=== PATIENT | male | born 1990 | race Caucasian/White ===

== ENCOUNTER 2018-08-01 12:34 | Emergency (ER) | payer BC, SELFPAY ==
[2018-08-01 12:34] VITALS: BP 117/73; PULSE 74; RESP 16; TEMP 36.9; O2SAT 98; BMI 21.1
[2018-08-01 13:34] LABS: Bacteria 0 SEEN /hpf (None Seen); Mucous, Urine 0 SEEN /hpf (<or=2+); Squamous Epithelial Cells - UA 0 SEEN /hpf (0-5); White Blood Cells 0 SEEN /hpf (0-5)
[2018-08-01 13:37] LABS: Color, Urine Yellow (Yellow); Glucose, Dipstick Normal (Normal); Ketone-Dipstick Negative (Negative); Leukocyte Esterase-Dipstick Negative /ul (Negative); Nitrite-Dipstick Negative (Negative); Occult Blood-Urine 250 /ul (Negative); Protein-Dipstick Negative (Negative); Specific Gravity, Urine 1.015 (1.002-1.030); Urine Bilirubin Dipstick Negative (Negative); Urine Clarity Clear (Clear); Urine Urobilinogen Normal (Normal)
--- NOTE | 2018-08-01 13:39 | ED.VISSUMM ---
- ER Visit Summary Date of Service: 08/01/18 Chief Complaint: Flank pain History of Present Illness: The patient is a 28 M who presents the emergency department the right flank pain. Patient states that he woke today around 1000 hours. The patient describes it as a constant pain. It is may be worse with movement. It is not radiating. Notes mild nausea but no vomiting. No leg symptoms. No known trauma. This week at work he put in a 85-hour workweek. 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 States he had a little bit of discomfort in this area yesterday but not like today. Physical Examination: Afebrile vital signs are stable Gen: Well-nourished well-developed Head: Normocephalic atraumatic Eyes: Perrl EOMI ENT: TMs clear no rhinorrhea moist mucous membranes Neck: Supple no lymphadenopathy no JVD nontender CVS: Regular rate rhythm no murmurs normal S1-S2 Respiratory: No distress clear to auscultation bilaterally chest nontender Abdomen: Soft nontender nondistended normal bowel sounds no masses Back: Mild tenderness but not exactly reproducing his pain is not reproducible with movement Extremity: Nontender no edema Skin: Normal color no rash Neuro: alert orientated ?3 CN II-XII intact normal strength sensation reflexes gait cerebellar Psych: Normal affect normal mood Test Results: Urinalysis demonstrated greater than [address] abdomen pelvis without contrast demonstrated 2 mm mid ureteral stone with mild hydroureter. Emergency Department Course and Treatment: Patient received a dose of Toradol. Has been resting comfortably. Patient be discharged home with a prescription for [place], Toradol, and Zofran. Return instructions understood. He will follow-up with urology Dr. perez [email or web address] application developer today. Impression: 1. Right 2 mm ureterolithiasis This note was generated with imeem dictation software. It may contain incorrect words, spelling, and punctuation that were not noted in review of the chart prior to signing ED Disposition - Plan for ED Patient: Disposition: Home or Assisted Living Instructions: ED Stone Renal W Colic Prescriptions: Hydrocodone Bitart/Apap 5-325 [[place] 5MG-325MG] 1 tab PO Q6H PRN PRN 3 Days #12 tab PRN Reason: Pain Ondansetron [Zofran Odt] 4 mg PO Q6H PRN PRN #10 tab PRN Reason: Nausea Ketorolac [Toradol] 10 mg PO Q8H PRN #15 tab PRN Reason: Pain Referrals: Addy Mehta MD [STAFF PHYSICIAN] -
--- NOTE | 2018-08-01 13:41 | CT_ITS ---
STUDY: CT ABDOMEN AND PELVIS WITHOUT CONTRAST REASON FOR EXAM: Male, 28 years old. Right flank pain that started today RADIATION DOSAGE (If Supplied By Facility): CTDIvol = ( 6.21 ) mGy, DLP = ( 320.93 ) mGycm TECHNIQUE: Transaxial images were obtained from the dome of the diaphragm to the symphysis pubis without oral contrast, and without intravenous contrast. Sagittal and coronal images were reconstructed. Individualized dose optimization techniques were used for this CT. COMPARISON: None. FINDINGS: The visualized lung bases are unremarkable. The visualized portions of the heart are within normal limits. Normal liver. Normal gallbladder and extrahepatic biliary system. Normal spleen. Normal pancreas. Normal bilateral adrenal glands. Mild right hydronephrosis and hydroureter extending to a 2 mm calcification in the right mid ureter at L4 level. Nonobstructing 2 mm calculus in inferior right kidney as seen on image 67. 2 mm nonobstructing calculus of the left kidney is evident on image 55. Normal visualized stomach. Normal small intestine. Normal colon. The appendix is visualized and appears normal. Normal abdominal aorta. Normal inferior vena cava. Normal retroperitoneum. Normal urinary bladder. Normal abdominal wall. Normal osseous structures. CT/Abdomen/Pelvis without Cont IMPRESSION: 2 mm right mid ureter calculus with mild hydronephrosis. Bilateral nephrolithiasis. Electronically Signed: Chandler Parkinson MD at 14:46 EDT , Service support ,
[2018-08-01 13:42] LABS: Red Blood Cells-Urine > 100 SEEN /hpf (0-5)
[2018-08-01 14:01] LABS: Anion Gap 5 (5-15); BUN 14 mg/dL (7-18); BUN/Creat Ratio 12.6 RATIO (10-20); Calcium,Total 9.1 mg/dL (8.5-10.1); Chloride 105 mmol/L (98-107); Creatinine, Serum 1.11 mg/dL (0.70-1.30); EST Glomerular Filtration Rate 83 mL/min (>60); Est Glom Filt Rate - Afr Amer 101 mL/min (>60); Estimated Creatinine Clearance 98.06 ml/min; Glucose 100 mg/dL (74-106); Potassium 4.1 mmol/L (3.5-5.1); Sodium Level 138 mmol/L (136-145)
[2018-08-01] MEDS: Ketorolac 30 MG/ML Syringe IV (14:05)
[2018-08-01 15:21] VITALS: BP 129/77; PULSE 55; RESP 16; TEMP 36.6; O2SAT 100
== END 2018-08-01 15:23 | disposition home or self-care (01) ==
PROVIDERS: Emergency Provider Emergency Medicine
DX: N20.1 Calculus of ureter (principal)
CPT/HCPCS: 74176; 80048; 81001; 96374; 99283

== ENCOUNTER 2025-04-24 00:08 | Emergency (ER) | payer BC, SELFPAY ==
[2025-04-24 00:10] VITALS: BP 140/92; PULSE 127; RESP 10; TEMP 37; O2SAT 98; BMI 26.9
--- NOTE | 2025-04-24 00:20 | EKG12_ITS ---
Test Reason : DYSRHYTHMIA Blood Pressure : */* mmHG Vent. Rate : 119 BPM Atrial Rate : 119 BPM P-R Int : 200 ms QRS Dur : 84 ms QT Int : 290 ms P-R-T Axes : 57 97 61 degrees QTcB Int : 407 ms Sinus tachycardia Possible Left atrial enlargement Rightward axis Nonspecific ST abnormality Abnormal ECG Confirmed by George Swan ([id number]), videotape editor BRIEN ALTAMIRANO ([id number]) on 04/25/2025 10:01:07 AM Referred By: JAMES Confirmed By: George Swan
--- NOTE | 2025-04-24 00:20 | RAD_ITS ---
PROCEDURE: CHEST 1 VIEW (PORTABLE) 04/24/2025 REASON FOR EXAM: CHEST PAIN TECHNIQUE: Frontal view of the chest. FINDINGS: The lungs are clear. The cardiomediastinal silhouette appears unremarkable. No acute osseous abnormality. RAD/Chest 1 View (Portable) IMPRESSION: As above. Reading Location: [id number]
[2025-04-24 00:39] LABS: Hematocrit 43.3 % (40-54); Hemoglobin 14.8 g/dL (13.0-16.5); Immature Granulocytes Count 0.040 X10^3/uL (0.0-0.0); Mean Corp Hgb Conc 34.2 g/dL (32-36); Mean Corpuscular Volume 88.2 fL (80-94); Mean Platelet Vol. 8.9 fl (6.2-12.0); NRBC Flagged by Analyzer 0 % (0-5); Platelet Count 330 K/mm3 (150-450); RBC Distribution Width CV 12.5 % (11.6-14.6); RBC Distribution Width SD 40.1 fl (35.1-43.9); Red Blood Count 4.91 M/mm3 (4.6-6.2); White Blood Count 13.0 K/mm3 (4.4-11.0)
[2025-04-24 00:45] LABS: D-Dimer Quantitative (DVT/PE) 0.44 FEU/ug/m (0.27-0.49)
[2025-04-24 00:46] LABS: Anion Gap 14 (7-18); BUN 11 mg/dL (4-19); BUN/Creat Ratio 9.4 RATIO (10-20); Calcium,Total 9.6 mg/dL (7.6-11.0); Carbon Dioxide 23.2 mmol/L (20.0-29.0); Chloride 101 mmol/L (96-106); Estimated Creatinine Clearance 99.19 ml/min (50-250); Glucose 116 mg/dL (70-99); Potassium 4.0 mmol/L (3.5-5.1); Troponin T High Sensitivity < 6 ng/L (<=22)
[2025-04-24] MEDS: 0.9% Normal Saline (1000mL) 1,000 ML 999 ML IV (00:51)
[2025-04-24 01:00] VITALS: BP 132/84; PULSE 111; RESP 19; O2SAT 96
[2025-04-24 01:14] LABS: Magnesium 1.8 mg/dL (1.5-2.2)
--- NOTE | 2025-04-24 01:44 | EDS_ITS ---
HPI History of Present Illness Chief Complaint: Palpitations Informant: patient and family Narrative Narrative: Patient is a 35-year-old male with no reported significant past medical history. He states this evening he was resting at home when he felt his heart began to race. He states his watch alerted him that his heart rate was fast and approximately around 140. He states there is no known history of cardiac dysrhythmia in himself or family members. 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 He denies any recent sick symptoms or bouts of nausea and vomiting which could have led to dehydration. He states that this type of event has happened in the past but will typically resolve within a few minutes if he lays down and does deep breathing. He tried that this evening without any symptom improvement and therefore based on the persistent nature of symptoms presents for evaluation Patient also denies any history of excessive stimulant use or illicit drug use PFSH PFS Medical History no medical history no medical history Home Medications Medication Instructions Recorded Last Taken Type NK 04/24/25 Unknown History Allergy/AdvReac Type Severity Reaction Status Date / Time No Known Allergies Allergy Verified 04/24/25 00:14 Surgical History (Updated 04/24/25 @ 00:13 by Zhane Vazquez) H/O knee surgery History of ankle surgery Social History Smoking Status: Never smoker ROS ROS ED Constitutional Constitutional ED: Denies chills or fever(s) Eyes Eyes: Denies change in vision ENT ENT ED: Denies sore throat Cardiovascular Cardiovascular: Reports palpitations and racing heartbeat; Denies chest pain Respiratory/Chest Respiratory/Chest: Denies cough or dyspnea Gastrointestinal Gastrointestinal: Denies abdominal pain, diarrhea, nausea or vomiting Musculoskeletal Musculoskeletal: Denies back pain or myalgias Integumentary Denies rash Neurologic Neurologic: Denies headache(s) Psychiatric Psychiatric: Denies anxiety Hematologic/Lymphatic Hematologic/Lymphatic: Denies easy bleeding or easy bruising EXAM Physical Exam Const Vital Signs: 04/24/25 00:10 04/24/25 00:13 04/24/25 00:24 Temperature 98.6 F Temperature Source Oral Pulse Rate 127 H Respiratory Rate 10 L Respiratory Effort Normal Non-Labored Blood Pressure 140/92 H Blood Pressure Mean 108 Pulse Ox 98 Oxygen Delivery Method Room Air Room Air 04/24/25 01:00 04/24/25 01:59 Temperature 98.6 F Temperature Source Pulse Rate 111 H 109 H Respiratory Rate 19 H 17 Respiratory Effort Blood Pressure 132/84 H 139/90 H Blood Pressure Mean 97 106 Pulse Ox 96 96 Oxygen Delivery Method Room Air Positive well nourished and well developed General Appearance ED: well developed; Negative for pallor HEENT HEENT Narrative: Normocephalic atraumatic Eyes PERRL and EOMs intact bilaterally General Eye ED: Negative for scleral icterus Neck supple and no JVD Chest Wall palpation of chest normal Resp normal respiratory effort and clear to auscultation bilaterally Cardio regular rhythm Rate: tachycardic and other Other Details: Tachycardic rate with regular rhythm No murmurs rubs or gallop Radial and carotid pulses are equal and symmetric GI normal to inspection, nondistended, normoactive bowel sounds, non-tender, non- distended and no masses Auscultation: normoactive bowel sounds Palpation: soft Extremity normal to inspection Extremity Narrative: No asymmetric edema no pitting edema negative Homans' sign bilaterally Neuro oriented x3, CN's II-XII intact bilaterally and no sensory deficits noted Sensorium / Orientation: alert Motor Exam: strength 5/5 throughout Psych mental status grossly normal Mood & Affect: Negative for anxious Skin no rashes or lesions noted and skin turgor normal General Skin Exam: Negative for jaundice or pallor MDM MDM MDM Narrative Medical decision making narrative: Patient arrived to the ER mildly hypertensive and tachycardic. He reported no known history of cardiac dysrhythmia but that these events have occurred in the past but have resolved quickly while this 1 has persisted. In order to assess for potential metabolic cause of his tachycardia such as acute blood loss anemia acute kidney injury thyroid dysfunction or electrolyte abnormality basic blood work was obtained. He is low risk for PE/DVT and therefore dimer was ordered. D-dimer is normal going against PE or dissection. Troponin is less than 6 going against ACS. Chest x-ray reveals no acute lung pathology such as pneumonia or pneumothorax. Blood work reveals no sign of acute blood loss anemia or thyroid dysfunction or MITCHELL. With time and IV fluids his heart rate improved to roughly 105. He remained sinus for the entire ER stay without cardiac monitoring picking up cardiac dysrhythmia such as SVT A-fib or a flutter. On reevaluation he is resting comfortably and reports feeling much better. As his overall workup is negative and he does not have a cardiac dysrhythmia I do not feel there is need for further evaluation in the ER. The patient will be advised to follow-up with family doctor to discuss need for Holter monitor and/or cardiology referral but at this point as he is hemodynamically stable with negative workup he is otherwise safe for discharge History & Record Review Discussion w/independent historian: Patient and Family Lab Data Attestation: I reviewed the patient's lab results. Labs: Laboratory Results - last 24 hr 04/24/25 00:14 WBC 13.0 H RBC 4.91 Hgb 14.8 Hct 43.3 MCV 88.2 MCH 30.1 MCHC 34.2 RDW Std Deviation 40.1 RDW Coeff of Efrain 12.5 Plt Count 330 MPV 8.9 Immature Gran % (Auto) 0.300 Neut % (Auto) 88.2 H Lymph % (Auto) 6.4 L [place] % (Auto) 4.9 Eos % (Auto) 0.0 Baso % (Auto) 0.2 Absolute Neuts (auto) 11.5 H Absolute Lymphs (auto) 0.84 Nucleated RBC % 0 D-Dimer Quant (PE/DVT) 0.44 Sodium 138 Potassium 4.0 Chloride 101 Carbon Dioxide 23.2 Anion Gap 14 BUN 11 Creatinine 1.13 Estim Creat Clear Calc 99.19 Est GFR (MDRD) Non-Af 86 BUN/Creatinine Ratio 9.4 L Glucose 116 H Calcium 9.6 Magnesium 1.8 Troponin T High Sens < 6 TSH 0.781 Radiography Diagnostic Testing: Clinical Impression(s) from Imaging Studies Chest X-Ray 04/24/25 00:20 IMPRESSION: As above. Reading Location: [facility] Chest x-ray as interpreted by the emergency medicine physician reveals no acute infiltrate or pneumothorax or pleural effusion Discharge Plan Triage Chief Complaint: Palpitations ED Provider: Delfino Panda Dx/Rx/DC Orders Clinical Impression: Palpitations Instructions: ED Heart Palpitations Prescriptions: No Action NK Primary Care Provider: Care Physician,No Primary Referrals: Federico Stevenson MD [Med Staff - Active Staff, Family Practice] Care Physician,No Primary [Primary Care Provider, Medical] Activity Restrictions/Additional Instructions: Your up today revealed no signs of abnormal heart rhythm but with your history of elevated heart rate and your young age and overall negative workup there is high concern you may have a intermittent abnormal heart rhythm. Please talk to your family doctor about a cardiology referral and/or a Holter monitor for further evaluation of this and return to the ER should you have any further concerns Print Language: Greek Disposition Disposition: Home, Self Care Discharge Date/Time: 04/24/25 02:08
[2025-04-24 01:59] VITALS: BP 139/90; PULSE 109; RESP 17; TEMP 37; O2SAT 96
== END 2025-04-24 02:08 | disposition home or self-care (01) ==
PROVIDERS: Emergency Provider Emergency Medicine; Visit Provider Emergency Medicine
DX: R00.2 Palpitations (principal)
CPT/HCPCS: 71045; 80048; 83735; 84443; 84484; 85025; 85379; 93005; 96360; 99284; A4216